=== PATIENT | female | born 1940 | race Caucasian/White ===

== ENCOUNTER → 2017-12-14 09:39 | Outpatient (CLI) | payer MEDICARE, SELFPAY ==
[2017-12-14 12:20] LABS: Absolute Lymphocyte Count 3.33 X10^3/ul (0.83-4.51); Absolute Neutrophil Count 3.6 X10^3/uL (2.0-7.7); Basophil# 0.03 X10^3/uL; Basophil% 0.4 % (0-1); Eosinophil# 0.19 X10^3/uL; Eosinophils% 2.3 % (0-5); Hematocrit 43.9 % (37-47); Lymphocyte # 3.33 X10^3/ul (4.0); Lymphocyte % 40.7 % (19-41); Mean Corp Hgb Conc 31.9 g/gl (32-36); Mean Corpuscular Hgb 28.5 pg (27.0-32.0); Mean Corpuscular Volume 89.2 fL (81-99); Mean Platelet Vol. 9.2 fl (6.2-12.0); Monocyte# 1.01 X10^3/uL; Monocyte% 12.3 % (0-10); Neutrophil % 43.9 % (47-70); Platelet Count 250 K/mm3 (150-450); RBC Distribution Width CV 14.5 % (11.6-14.6); RBC Distribution Width SD 46.6 fl (35.1-43.9); Red Blood Count 4.92 M/mm3 (4.2-5.4); White Blood Count 8.2 K/mm3 (4.4-11.0)
[2017-12-14 12:24] LABS: POSITIVE COUNT NO; POSITIVE DIFFERENTIAL NO; POSITIVE MORPHOLOGY NO
[2017-12-14 12:33] LABS: AST(SGOT) 28 U/L (15-37); Alanine Aminotransfer ALT/SGPT 32 U/L (13-56); Albumin, Serum 3.4 g/dL (3.2-5.0); Alkaline Phosphatase 58 U/L (45-117); Globulin 3.7 g/dL (2.2-4.2); Protein, Total 7.1 g/dL (6.4-8.2)
== END ==
PROVIDERS: Family Provider Internal Medicine; PCP Internal Medicine; Visit Provider Internal Medicine Rheumatology
DX: M05.79 Rheumatoid arthritis with rheumatoid factor of multiple sites without organ or systems involvement (principal); Z79.899 Other long term (current) drug therapy
CPT/HCPCS: 36415; 80076; 85025

== ENCOUNTER → 2018-01-19 08:27 | Outpatient (CLI) | payer MEDICARE, SELFPAY ==
[2018-01-19 08:37] LABS: Mucous, Urine 0 SEEN /hpf (<or=2+); Red Blood Cells-Urine 0 SEEN /hpf (0-5)
[2018-01-19 10:34] LABS: Absolute Lymphocyte Count 2.93 X10^3/ul (0.83-4.51); Absolute Neutrophil Count 3.7 X10^3/uL (2.0-7.7); Basophil# 0.07 X10^3/uL; Basophil% 0.8 % (0-1); Eosinophil# 1.23 X10^3/uL; Eosinophils% 13.7 % (0-5); Hematocrit 43.7 % (37-47); Hemoglobin 13.9 g/dl (12.0-15.0); Lymphocyte # 2.93 X10^3/ul (4.0); Lymphocyte % 32.7 % (19-41); Mean Corp Hgb Conc 31.8 g/gl (32-36); Mean Corpuscular Volume 88.1 fL (81-99); Mean Platelet Vol. 9.3 fl (6.2-12.0); Monocyte# 1.01 X10^3/uL; Monocyte% 11.3 % (0-10); Neutrophil # 3.68 X10^3/uL (2.7-7.7); Neutrophil % 41.2 % (47-70); Platelet Count 285 K/mm3 (150-450); RBC Distribution Width CV 14.9 % (11.6-14.6); Red Blood Count 4.96 M/mm3 (4.2-5.4)
[2018-01-19 10:39] LABS: POSITIVE COUNT NO; POSITIVE DIFFERENTIAL NO; POSITIVE MORPHOLOGY NO
[2018-01-19 10:50] LABS: Color, Urine Yellow (Yellow); Glucose, Dipstick Normal (Normal); Ketone-Dipstick Negative (Negative); Leukocyte Esterase-Dipstick 500 /ul (Negative); Nitrite-Dipstick Negative (Negative); Occult Blood-Urine 10 /ul (Negative); Protein-Dipstick Negative (Negative); Specific Gravity, Urine 1.015 (1.002-1.030); Urine Bilirubin Dipstick Negative (Negative); Urine Clarity Clear (Clear); Urine Urobilinogen Normal (Normal)
[2018-01-19 11:06] LABS: Bacteria 1+ /hpf (None Seen); Squamous Epithelial Cells - UA 10-25 SEEN /hpf (5-10); White Blood Cells 50-100 SEEN /hpf (0-5)
[2018-01-19 11:19] LABS: ALB/GLOB Ratio 0.9 RATIO (0.9-2.4); AST(SGOT) 23 U/L (15-37); Alanine Aminotransfer ALT/SGPT 25 U/L (13-56); Albumin, Serum 3.2 g/dL (3.2-5.0); Alkaline Phosphatase 60 U/L (45-117); Anion Gap 8 (5-15); BUN 11 mg/dL (7-18); BUN/Creat Ratio 11.7 RATIO (10-20); Calcium,Total 8.7 mg/dL (8.5-10.1); Chloride 110 mmol/L (98-107); Cholesterol 165 mg/dL (200); Creatinine, Serum 0.94 mg/dL (0.55-1.02); EST Glomerular Filtration Rate 61 mL/min (>60); Est Glom Filt Rate - Afr Amer 74 mL/min (>60); Globulin 3.7 g/dL (2.2-4.2); Glucose 86 mg/dL (74-106); High Density Lipoprotein 55 mg/dL; Potassium 4.1 mmol/L (3.5-5.1); Protein, Total 6.9 g/dL (6.4-8.2); Sodium Level 146 mmol/L (136-145); Thyroid Stim Hormone (TSH) 1.42 uIU/mL (0.358-3.74); Triglycerides 152 mg/dL; Very Low Density Lipoprotein 30 mg/dL (5-40)
[2018-01-19 11:41] LABS: Microalbumin,Random Urine 21.4 mg/L (NO RANGE EST.); Microalbumin:Creatinine Ratio 12.2 mg/g CRE (<30 mg/g CRE)
== END ==
PROVIDERS: Family Provider Internal Medicine; PCP Internal Medicine; Visit Provider Internal Medicine
DX: E03.9 Hypothyroidism, unspecified (principal); E78.5 Hyperlipidemia, unspecified; I10 Essential (primary) hypertension
CPT/HCPCS: 36415; 80053; 80061; 81001; 82043; 82570; 84443; 85025

== ENCOUNTER 2018-02-25 13:02 | Outpatient (RCR) | payer MEDICARE, SELFPAY | END 2018-03-11 23:59 | LOC: NS 13:02 | PROVIDERS: Family Provider Internal Medicine; PCP Internal Medicine; Visit Provider Podiatrist | DX: E11.9 Type 2 diabetes mellitus without complications (principal); S92.352D Displaced fracture of fifth metatarsal bone, left foot, subsequent encounter for fracture with routine healing; L97.519 Non-pressure chronic ulcer of other part of right foot with unspecified severity; G62.9 Polyneuropathy, unspecified; M06.9 Rheumatoid arthritis, unspecified; Z71.3 Dietary counseling and surveillance | CPT/HCPCS: 97802 ==

== ENCOUNTER 2018-03-09 11:00 | Outpatient (RCR) | payer MEDICARE, SELFPAY ==
[2018-02-23 09:29] VITALS: BP 163/87; PULSE 69; RESP 16; TEMP 36.4; BMI 24.1
--- NOTE | 2018-02-23 11:03 | HP.PCM_ITS ---
(1) Diabetes mellitus Status: Chronic Current Visit: Yes Qualifiers: Diabetes mellitus type: type 2 Code(s): E11.9 - Type 2 diabetes mellitus without complications (2) Ulcer of toe of right foot Status: Chronic Current Visit: Yes Qualifiers: Non-pressure ulcer stage: with fat layer exposed Qualified Code(s): L97.512 - Non-pressure chronic ulcer of other part of right foot with fat layer exposed Code(s): L97.519 - Non-pressure chronic ulcer of other part of right foot with unspecified severity (3) Peripheral neuropathy Status: Chronic Current Visit: Yes Code(s): G62.9 - Polyneuropathy, unspecified (4) Hypothyroidism Status: Chronic Current Visit: No Code(s): E03.9 - Hypothyroidism, unspecified (5) Rheumatoid arthritis Status: Chronic Current Visit: Yes Code(s): M06.9 - Rheumatoid arthritis, unspecified (6) Essential hypertension Status: Chronic Current Visit: No Code(s): I10 - Essential (primary) hypertension (7) Chronic osteoarthritis Status: Chronic Current Visit: Yes Code(s): M19.90 - Unspecified osteoarthritis, unspecified site History of Present Illness Date of Service: 02/23/18 Chief Complaint: Ulcerations of the right second and third toes. History of Wound: This is a 77-year-old female with diabetes mellitus. She is a referral from her podiatric specialist due to superficial ulcerations on the right second and third toes. These have been present for approximately 1 month. It is thought that these occurred due to reticulocyte deformity of the toes, and the pressure phenomenon related to the adjacent digits. The patient has been using Neosporin topically. Each ulceration started as a blister, which have now ruptured and resulted in superficial ulcerations. The patient is currently wearing a CAM walker the left foot, due to a left foot fracture which appears to involve the arch. Past Medical History Past Medical History: Chronic Problems Diabetes mellitus (Chronic) Ulcer of toe of right foot (Chronic) Peripheral neuropathy (Chronic) Hypothyroidism (Chronic) Rheumatoid arthritis (Chronic) Essential hypertension (Chronic) Chronic osteoarthritis (Chronic) Past Medical History: The patient has a history of osteoarthritis, rheumatoid arthritis, diabetes mellitus, peripheral neuropathy, hypertension, and hypothyroidism. The patient's history is negative for myocardial infarction, congestive heart failure, cerebrovascular accident, cancer, pulmonary disease, renal disease, and hyperlipidemia. Surgical History: adenoidectomy, appendectomy, cholecystectomy, hysterectomy, - - Cataract surgery, right shoulder surgery, right carpal tunnel release, right hand surgery ?2, right knee surgery, right bunionectomy, left breast surgery for benign disease, surgery for a deviated Omma and lumbar disc surgery at the 4 ?5 level. Allergies/Adverse Reactions: Allergies amoxicillin [From Augmentin] Adverse Reaction (Verified 05/12/17 17:09) dizzy,vomitting DIZZY, VOMITTING clavulanic acid [From Augmentin] Adverse Reaction (Verified 05/12/17 17:09) dizzy, vomitting DIZZY, VOMITTING codeine Adverse Reaction (Verified 05/12/17 17:09) dizzy,nausea DIZZY, NAUSEA hydrocodone [From Vicodin] Adverse Reaction (Verified 05/12/17 17:09) dizzy,nausea DIZZY, NAUSEA oxycodone [From Percocet] Adverse Reaction (Verified 05/12/17 17:09) dizzy,nausea DIZZY, NAUSEA Sulfa (Sulfonamide Antibiotics) Adverse Reaction (Verified 05/12/17 17:09) dizzy,nausea DIZZY, NAUSEA tramadol Adverse Reaction (Verified 05/12/17 17:09) dizzy,nausea DIZZY, NAUSEA Home Medications: Ambulatory Orders Medication Instructions Recorded Levothyroxine [Synthroid] 75 mcg PO DAILY 03/11/17 Lisinopril [Zestril] 10 mg PO DAILY 03/11/17 Lorazepam [Ativan] 0.5 mg PO DAILY PRN PRN 03/11/17 Multivit-Min/FA/Lycopen/Lutein 1 each PO DAILY 03/11/17 [Centrum Silver Tablet] Omeprazole [Prilosec] 20 mg PO DAILY 03/11/17 Potassium (Otc) [Potassium OTC] 99 mg PO DAILY 03/11/17 Vitamin E 400 unit PO DAILY 03/11/17 Vits A,C,E/Lutein/Minerals 1 each PO DAILY 03/11/17 [Ocuvite with Lutein Tablet] predniSONE tablet 5 mg PO DAILY 03/11/17 traZODone [Desyrel] 50 mg PO QHS PRN 03/11/17 Acetaminophen [Tylenol Tablet] 650 mg PO Q6H PRN PRN tablet 05/15/17 Leflunomide 20 mg PO DAILY 02/23/18 Metformin HCl [Metformin HCl ER] 500 mg PO DAILY 02/23/18 - Family History Maternal No pertinent history, - - The patient's father at the age of 94 with a history of bone cancer. Patient's mother at age of 97 from old age. Paternal No pertinent history Social History: The patient is a recent . She denies use of alcohol and tobacco products. 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 Lives: Alone Smoking Status: Never smoker Tobacco Use: Non-smoker Alcohol: None Drugs: None Review of Systems Constitutional: Denies: Chills, Fever, Weight Change Eyes: Denies: Pain, Vision Change HEENT: Denies: Difficulty Hearing, Difficulty Swallowing, Sinus Congestion Cardiovascular: Denies: Chest Pain, Palpitations Respiratory: Denies: Cough, Shortness of Breath Gastrointestinal: Denies: Diarrhea, Nausea, Vomiting Genitourinary: Denies: Dysuria, Hematuria Endocrine: Denies: Heat/ Cold Intolerance, Polydipsia, Polyuria Hematologic/ Lymphatic: Denies: Easy Bruising, Easy Bleeding - Physical Exam Vital Signs Temp Pulse Resp BP 97.6 F L 69 16 163/87 H 02/23/18 09:29 02/23/18 09:29 02/23/18 09:29 02/23/18 09:29 General: Alert, Oriented x3, Cooperative, No apparent distress, Well developed, Well nourished, - - The patient is of normal body habitus. HEENT: Atraumatic, PERRLA, EOMI, Normocephalic Oral: Moist Mucosa Neck: Supple, No JVD, Negative Carotid Bruits, Negative Hepatojugular Reflux, No Nodes, No Nuchal Rigidity, Trachea Midline Lungs: Clear to auscultation, Normal air movement, No rhonchi, No wheeze, No rales Cardiovascular: Regular rate, Regular Rhythm, Normal S1, Normal S2, No murmurs Abdomen: Soft, Non Tender, Non-Distended Extremities: No clubbing, No cyanosis, No edema, No Calf Tenderness, - - A CAM walker as noted on the left foot. Arthritic changes are noted involving the toes of the right foot. Superficial ulcerations are noted on the medial aspect of the right second toe and on the right third toe. The base of these ulcerations are pink and healthy in appearance. There is no sign of infection or cellulitis. The ulcerations are small, and dimensions are documented elsewhere. Skin: No rashes Wound Measurements and Assessment WC - Nurse 1 - General Ulcer Measurement Start: 02/23/18 09:06 Freq: Status: Active Protocol: Activity Type Activity Date Activity User E-Sign Co-Sign Detail Recorded Client Recorded Date Recorded By Document 02/23/18 09:29 DV [id number] 02/23/18 09:49 DV 02/23/18 09:29 Wound Center Nurse 1 [Ulcer Assessment] #2 3rd Toe -Combined with other wound No -Current Size (cm) - Length 0.3 -Current Size (cm) - Width 0.2 -Current Size (cm) - Depth 0.1 -Total Square Cm 0.06 -Photo Taken Yes -Epithelialization None Present -Tunneling No -Undermining/Tunneling No -Circular Undermining No -Classification - Thickness Full Thickness without Exposed Support Structure -Exudate Amt None Present (0 %) -Wound Margin Flat & Intact -Granulation Amt None Present (0 %) -Granulation Quality N/A -Slough/Fibrin Yes -Necrosis Amt Small (1-33%) -Necrotic Tissue Type Adherent Slough -Structure Exposed None/Limited to Skin Breakdown -Texture (Adelina-wound Skin Appearance) No Abnormality Assessed -Moisture (Adelina-wound Skin Appearance Assessed ) Weeping -Color (Adelina-wound Skin Appearance) Assessed Erythema -Temperature (Adelina-wound Skin No Abnormality Appearance) (Pt Warm) -Tenderness on Palpation (Adelina-wound No Skin Appearance) -Ulcer Cleansing Wound Cleanser -Foul Odor after Cleansing No -Anesthetic Used 4% Lidocaine Solution #1 2nd Toe -Combined with other wound No -Current Size (cm) - Length 0.4 -Current Size (cm) - Width 0.2 -Current Size (cm) - Depth 0.1 -Total Square Cm 0.08 -Date of Last Picture (Recall this 02/23/18 field) -Photo Taken Yes -Epithelialization None Present -Tunneling No -Undermining/Tunneling No -Circular Undermining No -Classification - Thickness Full Thickness without Exposed Support Structure -Exudate Amt None Present (0 %) -Wound Margin Flat & Intact -Granulation Amt None Present (0 %) -Granulation Quality N/A -Slough/Fibrin Yes -Necrosis Amt Small (1-33%) -Necrotic Tissue Type Adherent Slough -Structure Exposed None/Limited to Skin Breakdown -Texture (Adelina-wound Skin Appearance) No Abnormality Assessed -Moisture (Adelina-wound Skin Appearance Assessed ) Weeping -Color (Adelina-wound Skin Appearance) Assessed Erythema -Temperature (Adelina-wound Skin No Abnormality Appearance) (Pt Warm) -Tenderness on Palpation (Adelina-wound No Skin Appearance) -Ulcer Cleansing Rinsed/ Irrigated with Saline -Foul Odor after Cleansing No -Anesthetic Used 4% Lidocaine Solution [Edema Assessment] -Lower Limb Edema Present No -Right Calf (cm) 32.5 -Right Ankle (cm) 19.0 Musculoskeletal: Arthritic Changes Neurological: Cranial nerves II-XII grossly intact, Neuro grossly intact Psych/Mental Status: Normal Affect, Appropriate, Alert and oriented to time, place, person, mood and affect Debridement Note Laterality: Right - Second toe Type of Debridement: Excisional debridement Anesthesia Used: 4% Lidocaine Solution Depth: Down to and including healthy tissue, in the subcutaneous layer Percentage of wound debrided: 100 Instrument Used: 3mm curette Severity: Fat Layer Exposed Bleeding Controlled with: Compression and gauze Patient tolerated procedure well - Additional Wound Laterality: Right - Third toe Type of Debridement: Excisional debridement Anesthesia Used: 4% Lidocaine Solution Depth: Down to and including healthy tissue, in the subcutaneous layer Percentage of wound debrided: 100 Instrument Used: 3mm curette Severity: Fat Layer Exposed Amount of bleeding with debridement: Mild Bleeding Controlled with: Compression and gauze Patient tolerated procedure: Patient tolerated procedure well Assessment/Plan Active Problems Diabetes mellitus (Chronic) Ulcer of toe of right foot (Chronic) Peripheral neuropathy (Chronic) Rheumatoid arthritis (Chronic) Chronic osteoarthritis (Chronic) Assessment: Is a 77-year-old diabetic female who presents with very superficial ulcerations on the second and third toes of the right foot. It appears as though the ulcerations started as blisters, which have now transitioned to superficial ulcerations. The blisters were likely due to pressure phenomenon, either due to poorly fitted shoes or rubbing due to deformity of the toes secondary to arthritis. Patient has multiple other medical problems, which have been documented above. She has had recent laboratory studies, with results as follows: White blood count 9.0 hemoglobin 13.9, hematocrit 43.7, platelets 285,000, sodium 146, potassium 4.1, chloride 110, BUN 11, creatinine 0.94, calcium 8.7, ALT 25, AST 23, total protein 6.9, albumin 3.2. Plan: Offloading measures have been recommended. We are to implement the use of optive foam, which will allow for offloading and separation of the adjacent digits. Hydrogel is to be implemented for topical use, and will be applied on a daily basis. A noninvasive lower extremity arterial study will be obtained to assess arterial status. Hemoglobin A1c will be also obtained, which will indicate the patient's level of diabetic control recently. Optimization of nutritional intake, and optimization of glycemic management has also been recommended. The patient is return in 1 week for reassessment. Influenza vaccine was not administered today. The patient is not a smoker. Patient weighs 154 pounds. She stands 5 feet 7 inches tall. Her BMI is 24.1, which is normal.
[2018-02-23 13:37] LABS: Hemoglobin A1c 6.2 % (4.2-6.3)
[2018-03-02 08:38] VITALS: BP 126/68; PULSE 75; RESP 16; TEMP 36.4; BMI 24.1
--- NOTE | 2018-03-02 09:14 | HP.PCM_ITS ---
(1) Diabetes mellitus Status: Chronic Current Visit: Yes Qualifiers: Diabetes mellitus type: type 2 Code(s): E11.9 - Type 2 diabetes mellitus without complications (2) Ulcer of toe of right foot Status: Chronic Current Visit: Yes Qualifiers: Non-pressure ulcer stage: with fat layer exposed Qualified Code(s): L97.512 - Non-pressure chronic ulcer of other part of right foot with fat layer exposed Code(s): L97.519 - Non-pressure chronic ulcer of other part of right foot with unspecified severity (3) Peripheral neuropathy Status: Chronic Current Visit: Yes Code(s): G62.9 - Polyneuropathy, unspecified (4) Hypothyroidism Status: Chronic Current Visit: No Code(s): E03.9 - Hypothyroidism, unspecified (5) Rheumatoid arthritis Status: Chronic Current Visit: Yes Code(s): M06.9 - Rheumatoid arthritis, unspecified (6) Essential hypertension Status: Chronic Current Visit: No Code(s): I10 - Essential (primary) hypertension (7) Chronic osteoarthritis Status: Chronic Current Visit: Yes Code(s): M19.90 - Unspecified osteoarthritis, unspecified site History of Present Illness Date of Service: 03/02/18 Chief Complaint: Ulcerations of the right second and third toes. History of Wound: This is a 77-year-old female with diabetes mellitus. She is a referral from her podiatric specialist due to superficial ulcerations on the right second and third toes. These have been present for approximately 1 month. It is thought that these occurred due to arthritic deformity of the toes , and the pressure phenomenon related to the adjacent digits. The patient had been using Neosporin topically. Each ulceration started as a blister, which have now ruptured and resulted in superficial ulcerations. The patient is currently wearing a CAM walker the left foot, due to a left foot fracture which appears to involve the arch. The patient's last visit, we have implemented a regimen of offloading measures, and the use of collagen hydrogel topically on a daily basis. Past Medical History Past Medical History: Chronic Problems Diabetes mellitus (Chronic) Ulcer of toe of right foot (Chronic) Peripheral neuropathy (Chronic) Hypothyroidism (Chronic) Rheumatoid arthritis (Chronic) Essential hypertension (Chronic) Chronic osteoarthritis (Chronic) Surgical History: adenoidectomy, appendectomy, cholecystectomy, hysterectomy, - - Cataract surgery, right shoulder surgery, right carpal tunnel release, right hand surgery ?2, right knee surgery, right bunionectomy, left breast surgery for benign disease, surgery for a deviated Omma and lumbar disc surgery at the 4 ?5 level. Allergies/Adverse Reactions: Allergies amoxicillin [From Augmentin] Adverse Reaction (Verified 05/12/17 17:09) dizzy,vomitting DIZZY, VOMITTING clavulanic acid [From Augmentin] Adverse Reaction (Verified 05/12/17 17:09) dizzy, vomitting DIZZY, VOMITTING codeine Adverse Reaction (Verified 05/12/17 17:09) dizzy,nausea DIZZY, NAUSEA hydrocodone [From Vicodin] Adverse Reaction (Verified 05/12/17 17:09) dizzy,nausea DIZZY, NAUSEA oxycodone [From Percocet] Adverse Reaction (Verified 05/12/17 17:09) dizzy,nausea DIZZY, NAUSEA Sulfa (Sulfonamide Antibiotics) Adverse Reaction (Verified 05/12/17 17:09) dizzy,nausea DIZZY, NAUSEA tramadol Adverse Reaction (Verified 05/12/17 17:09) dizzy,nausea DIZZY, NAUSEA Home Medications: Ambulatory Orders Medication Instructions Recorded Levothyroxine [Synthroid] 75 mcg PO DAILY 03/11/17 Lisinopril [Zestril] 10 mg PO DAILY 03/11/17 Lorazepam [Ativan] 0.5 mg PO DAILY PRN PRN 03/11/17 Multivit-Min/FA/Lycopen/Lutein 1 each PO DAILY 03/11/17 [Centrum Silver Tablet] Omeprazole [Prilosec] 20 mg PO DAILY 03/11/17 Potassium (Otc) [Potassium OTC] 99 mg PO DAILY 03/11/17 Vitamin E 400 unit PO DAILY 03/11/17 Vits A,C,E/Lutein/Minerals 1 each PO DAILY 03/11/17 [Ocuvite with Lutein Tablet] predniSONE tablet 5 mg PO DAILY 03/11/17 traZODone [Desyrel] 50 mg PO QHS PRN 03/11/17 Acetaminophen [Tylenol Tablet] 650 mg PO Q6H PRN PRN tablet 05/15/17 Leflunomide 20 mg PO DAILY 02/23/18 Metformin HCl [Metformin HCl ER] 500 mg PO DAILY 02/23/18 - Family History Maternal No pertinent history, - - The patient's father at the age of 94 with a history of bone cancer. Patient's mother at age of 97 from old age. Paternal No pertinent history Lives: Alone Smoking Status: Never smoker Tobacco Use: Non-smoker Alcohol: None Drugs: None Review of Systems Constitutional: Denies: Chills, Fever, Weight Change Eyes: Denies: Pain, Vision Change HEENT: Denies: Difficulty Hearing, Difficulty Swallowing, Sinus Congestion Cardiovascular: Denies: Chest Pain, Palpitations Respiratory: Denies: Cough, Shortness of Breath Gastrointestinal: Denies: Diarrhea, Nausea, Vomiting Genitourinary: Denies: Dysuria, Hematuria Endocrine: Denies: Heat/ Cold Intolerance, Polydipsia, Polyuria Hematologic/ Lymphatic: Denies: Easy Bruising, Easy Bleeding - Physical Exam Vital Signs Temp Pulse Resp BP 97.6 F L 75 16 126/68 H 03/02/18 08:38 03/02/18 08:38 03/02/18 08:38 03/02/18 08:38 General: Alert, Oriented x3, Cooperative, No apparent distress, Well developed, Well nourished HEENT: Atraumatic, PERRLA, EOMI, Normocephalic Oral: Moist Mucosa Neck: No JVD Lungs: Normal air movement Abdomen: Non-Distended Extremities: No clubbing, No cyanosis, No edema, No Calf Tenderness, - - The ulcerations on the medial aspect of the right second and third toes are smaller in size. Each is quite superficial. There is no sign of infection or cellulitis. Dimensions are documented elsewhere. There is only minimal amount of bioburden. Skin: No rashes Wound Measurements and Assessment WC - Nurse 1 - General Ulcer Measurement Start: 02/23/18 09:06 Freq: Status: Active Protocol: Activity Type Activity Date Activity User E-Sign Co-Sign Detail Recorded Client Recorded Date Recorded By Document 03/02/18 08:38 DL [id number] 03/02/18 08:48 DL 03/02/18 08:38 Wound Center Nurse 1 [Ulcer Assessment] #2 3rd Toe -Current Size (cm) - Length 0.1 -Current Size (cm) - Width 0.1 -Current Size (cm) - Depth 0.1 -Total Square Cm 0.01 -Photo Taken No -Exudate Amt None Present (0 %) -Wound Margin Flat & Intact -Granulation Amt Small (1-33%) -Granulation Quality Pale -Necrosis Amt Small (1-33%) -Necrotic Tissue Type Adherent Slough -Structure Exposed N/A -Texture (Adelina-wound Skin Appearance) No Abnormality -Moisture (Adelina-wound Skin Appearance No Abnormality ) -Color (Adelina-wound Skin Appearance) No Abnormality -Temperature (Adelina-wound Skin No Abnormality Appearance) (Pt Warm) -Ulcer Cleansing Rinsed/ Irrigated with Saline -Foul Odor after Cleansing No -Anesthetic Used 4% Lidocaine Solution #1 2nd Toe -Current Size (cm) - Length 0.2 -Current Size (cm) - Width 0.2 -Current Size (cm) - Depth 0.1 -Total Square Cm 0.04 -Photo Taken No -Exudate Amt None Present (0 %) -Wound Margin Flat & Intact -Granulation Amt None Present (0 %) -Necrosis Amt Small (1-33%) -Necrotic Tissue Type Adherent Slough -Structure Exposed N/A -Texture (Adelina-wound Skin Appearance) No Abnormality -Moisture (Adelina-wound Skin Appearance No Abnormality ) -Color (Adelina-wound Skin Appearance) No Abnormality -Temperature (Adelina-wound Skin No Abnormality Appearance) (Pt Warm) -Ulcer Cleansing Rinsed/ Irrigated with Saline -Foul Odor after Cleansing No -Anesthetic Used 4% Lidocaine Solution WC - Nurse 2 - General Ulcer CM Notes Start: 02/23/18 09:06 Freq: Status: Active Protocol: Activity Type Activity Date Activity User E-Sign Co-Sign Detail Recorded Client Recorded Date Recorded By Document 03/02/18 08:56 [email or web address] [id number] 03/02/18 09:04 [email or web address] 03/02/18 08:56 Wound Center Nurse 2 [Procedure/Treatment] #2 3rd Toe -Time 08:56 -Correct Patient Yes -Correct Side, Site, Position Yes -Correct Procedure Yes -Procedure Performed Yes -Type of Procedure Debridement -Clinical Debridement Subcutaneous -Post Debridement Size (cm) - Length 0.2 -Post Debridement Size (cm) - Width 0.1 -Post Debridement Size (cm) - Depth 0.1 -Total Square Cm 0.02 -Wound/Ulcer Outcome Not Healed -Ulcer Cleansing Rinsed/ Irrigated with Saline -Foul Odor after Cleansing No -Bioengineered Tissue No -Topical Lidocaine (%) 4 -Lidocaine (ml) 5 -Bleeding Controlled with NA -Treatment Response Procedure Tolerated Well #1 2nd Toe -Time 08:56 -Correct Patient Yes -Correct Side, Site, Position Yes -Correct Procedure Yes -Procedure Performed Yes -Type of Procedure Debridement -Clinical Debridement Subcutaneous -Post Debridement Size (cm) - Length 0.3 -Post Debridement Size (cm) - Width 0.3 -Post Debridement Size (cm) - Depth 0.1 -Total Square Cm 0.09 -Wound/Ulcer Outcome Not Healed -Ulcer Cleansing Rinsed/ Irrigated with Saline -Foul Odor after Cleansing No -Bioengineered Tissue No -Topical Lidocaine (%) 4 -Lidocaine (ml) 5 -Bleeding Controlled with NA -Treatment Response Procedure Tolerated Well [See Physician Procedure note for Specifics] Pain Scale: 0-10 Numeric [Pain] -Is Patient Pain Free? Yes Neurological: Cranial nerves II-XII grossly intact, Neuro grossly intact Psych/Mental Status: Normal Affect, Appropriate, Alert and oriented to time, place, person, mood and affect Debridement Note Post-Debridement Measurements/Treatment WC - Nurse 2 - General Ulcer CM Notes Start: 02/23/18 09:06 Freq: Status: Active Protocol: Activity Type Activity Date Activity User E-Sign Co-Sign Detail Recorded Client Recorded Date Recorded By Document 02/23/18 10:43 [id number] 02/23/18 10:58 JS Document 03/02/18 08:56 [id number] 03/02/18 09:04 02/23/18 03/02/18 10:43 08:56 Wound Center Nurse 2 #2 3rd Toe -Time 10:43 08:56 -Correct Patient Yes Yes -Correct Side, Site, Position Yes Yes -Correct Procedure Yes Yes -Procedure Performed Yes -Type of Procedure Debridement -Clinical Debridement Subcutaneous -Post Debridement Size (cm) - Length 0.2 -Post Debridement Size (cm) - Width 0.1 -Post Debridement Size (cm) - Depth 0.1 -Total Square Cm 0.02 -Wound/Ulcer Outcome Not Healed Not Healed -Ulcer Cleansing Not Cleansed Rinsed/ Irrigated with Saline -Foul Odor after Cleansing No No -Bioengineered Tissue No No -Topical Lidocaine (%) 4 4 -Lidocaine (ml) 5 5 -Bleeding Controlled with NA NA -Treatment Response Procedure Tolerated Well #1 2nd Toe -Time 10:43 08:56 -Correct Patient Yes Yes -Correct Side, Site, Position Yes Yes -Correct Procedure Yes Yes -Procedure Performed No Yes -Type of Procedure Debridement -Clinical Debridement Subcutaneous -Post Debridement Size (cm) - Length 0.3 -Post Debridement Size (cm) - Width 0.3 -Post Debridement Size (cm) - Depth 0.1 -Total Square Cm 0.09 -Wound/Ulcer Outcome Not Healed Not Healed -Ulcer Cleansing Rinsed/ Rinsed/ Irrigated with Irrigated with Saline Saline -Foul Odor after Cleansing No No -Bioengineered Tissue No No -Topical Lidocaine (%) 4 4 -Lidocaine (ml) 5 5 -Bleeding Controlled with NA NA -Treatment Response Procedure Not Procedure Tolerated Well Tolerated Well Pain Scale: 0-10 Numeric Is Patient Pain Free? Yes Laterality: Right - Second toe Type of Debridement: Excisional debridement Anesthesia Used: 4% Lidocaine Solution Depth: Down to and including healthy tissue, in the subcutaneous layer Percentage of wound debrided: 100 Instrument Used: 3mm curette Severity: Fat Layer Exposed Amount of bleeding with debridement: Mild Bleeding Controlled with: Compression and gauze Patient tolerated procedure well - Additional Wound Laterality: Right - Third toe Type of Debridement: Excisional debridement Anesthesia Used: 4% Lidocaine Solution Depth: Down to and including healthy tissue, in the subcutaneous layer Percentage of wound debrided: 100 Instrument Used: 3mm curette Severity: Fat Layer Exposed Amount of bleeding with debridement: Mild Bleeding Controlled with: Compression and gauze Patient tolerated procedure: Patient tolerated procedure well Assessment/Plan Active Problems Diabetes mellitus (Chronic) Ulcer of toe of right foot (Chronic) Peripheral neuropathy (Chronic) Rheumatoid arthritis (Chronic) Chronic osteoarthritis (Chronic) Assessment: This is a 77-year-old diabetic female who presents with very superficial ulcerations on the second and third toes of the right foot. It appears as though the ulcerations started as blisters, which have now transitioned to superficial ulcerations. The blisters were likely due to pressure phenomenon, either due to poorly fitted shoes or rubbing due to deformity of the toes secondary to arthritis. Patient has multiple other medical problems, which have been documented above. She has had recent laboratory studies, with results as follows: White blood count 9.0 hemoglobin 13.9, hematocrit 43.7, platelets 285,000, sodium 146, potassium 4.1, chloride 110, BUN 11, creatinine 0.94, calcium 8.7, ALT 25, AST 23, total protein 6.9, albumin 3.2. Hemoglobin A1c was 6.2. A noninvasive lower extremity arterial study revealed triphasic waveforms at ankle level bilaterally, and supra-normal ankle-brachial index on the right. Plan: Offloading measures have been implemented. We are to continue the use of Opti-Foam, which will allow for offloading and separation of the adjacent digits. Hydrogel is to be implemented for topical use, and will be applied on a daily basis. Optimization of nutritional intake, and optimization of glycemic management has also been recommended. The patient is to return in 1 week for reassessment. Influenza vaccine was not administered today. The patient is not a smoker. Patient weighs 154 pounds. She stands 5 feet 7 inches tall. Her BMI is 24.1, which is normal.
--- NOTE | 2018-03-05 07:14 | LEAS ---
Arterial Study - Arterial Study Arterial Study: This is a 77-year-old female with a history of diabetes mellitus and hypertension. The patient presents with physical findings consistent with peripheral arterial occlusive disease. Suspecting the presence of peripheral arterial occlusive disease, the patient was brought to the noninvasive vascular laboratory at this time for the purpose of bilateral noninvasive lower extremity arterial assessment. Doppler signal assessment was used to evaluate the pulses at ankle level bilaterally. The posterior tibial and dorsalis pedis pulses were triphasic bilaterally. Segmental limb pressures were obtained bilaterally. The right ankle pressure, as determined by posterior tibial pulse, was measured at 203 mmHg. The right ankle pressure, as determined by dorsalis pedis pulse, was measured at 171 mmHg. The right digital pressure was measured at 88 mmHg. The left ankle pressure, as determined by posterior tibial and dorsalis pedis pulses, could not be determined due to the noncompressibility of the vasculature. The left digital pressure was measured at 107 mmHg. Pulse-volume recordings were obtained bilaterally and segmentally. Waveform amplitudes appeared to be satisfactory at all levels bilaterally, including low thigh, calf, ankle, and digital levels. Resting ankle-brachial indices were calculated bilaterally. The resting right ankle-brachial index was calculated to be 1.57. The resting left ankle-brachial index could not be determined due to the noncompressibility of the vasculature. Digital-brachial indices were calculated bilaterally. The right digital-brachial index was calculated to be 0.68. The left digital-brachial index was calculated to be 0.83. Impression: Based upon the findings of this resting noninvasive lower extremity arterial study, there is evidence of arterial calcification in the lower extremities bilaterally. On the right, the resting ankle-brachial index is supra-normal, suggestive of arterial calcification. The resting left ankle-brachial index could not be calculated due to the noncompressibility of the vasculature. However, triphasic waveforms were noted at ankle level bilaterally, suggesting that arterial flow at ankle level may be relatively normal bilaterally. The right digital-brachial index is mildly diminished, suggesting the presence of mild, distal, small-vessel arterial occlusive disease. The left digital-brachial index is normal, suggesting relatively normal flow at digital level on the left. Clinical correlation is advised.
--- NOTE | 2018-03-05 07:18 | LEAS_ITS ---
Arterial Study - Arterial Study Arterial Study: This is a 77-year-old female with a history of diabetes mellitus and hypertension. The patient presents with physical findings consistent with peripheral arterial occlusive disease. Suspecting the presence of peripheral arterial occlusive disease, the patient was brought to the noninvasive vascular laboratory at this time for the purpose of bilateral noninvasive lower extremity arterial assessment. Doppler signal assessment was used to evaluate the pulses at ankle level bilaterally. The posterior tibial and dorsalis pedis pulses were triphasic bilaterally. Segmental limb pressures were obtained bilaterally. The right ankle pressure, as determined by posterior tibial pulse, was measured at 203 mmHg. The right ankle pressure, as determined by dorsalis pedis pulse, was measured at 171 mmHg. The right digital pressure was measured at 88 mmHg. The left ankle pressure, as determined by posterior tibial and dorsalis pedis pulses, could not be determined due to the noncompressibility of the vasculature. The left digital pressure was measured at 107 mmHg. Pulse-volume recordings were obtained bilaterally and segmentally. Waveform amplitudes appeared to be satisfactory at all levels bilaterally, including low thigh, calf, ankle, and digital levels. Resting ankle-brachial indices were calculated bilaterally. The resting right ankle-brachial index was calculated to be 1.57. The resting left ankle- brachial index could not be determined due to the noncompressibility of the vasculature. Digital-brachial indices were calculated bilaterally. The right digital- brachial index was calculated to be 0.68. The left digital-brachial index was calculated to be 0.83. Impression: Based upon the findings of this resting noninvasive lower extremity arterial study, there is evidence of arterial calcification in the lower extremities bilaterally. On the right, the resting ankle-brachial index is supra-normal, suggestive of arterial calcification. The resting left ankle- brachial index could not be calculated due to the noncompressibility of the vasculature. However, triphasic waveforms were noted at ankle level bilaterally , suggesting that arterial flow at ankle level may be relatively normal bilaterally. The right digital-brachial index is mildly diminished, suggesting the presence of mild, distal, small-vessel arterial occlusive disease. The left digital-brachial index is normal, suggesting relatively normal flow at digital level on the left. Clinical correlation is advised.
[2018-03-09 10:44] VITALS: BP 135/73; PULSE 77; RESP 18; TEMP 36.4; BMI 24.1
--- NOTE | 2018-03-09 11:38 | PCM.WC.HP ---
(1) Diabetes mellitus Status: Chronic Current Visit: Yes Qualifiers: Diabetes mellitus type: type 2 Code(s): E11.9 - Type 2 diabetes mellitus without complications (2) Ulcer of toe of right foot Status: Chronic Current Visit: Yes Qualifiers: Non-pressure ulcer stage: with fat layer exposed Qualified Code(s): L97.512 - Non-pressure chronic ulcer of other part of right foot with fat layer exposed Code(s): L97.519 - Non-pressure chronic ulcer of other part of right foot with unspecified severity (3) Peripheral neuropathy Status: Chronic Current Visit: Yes Code(s): G62.9 - Polyneuropathy, unspecified (4) Hypothyroidism Status: Chronic Current Visit: No Code(s): E03.9 - Hypothyroidism, unspecified (5) Rheumatoid arthritis Status: Chronic Current Visit: Yes Code(s): M06.9 - Rheumatoid arthritis, unspecified (6) Essential hypertension Status: Chronic Current Visit: No Code(s): I10 - Essential (primary) hypertension (7) Chronic osteoarthritis Status: Chronic Current Visit: Yes Code(s): M19.90 - Unspecified osteoarthritis, unspecified site (8) Steroid dependence Status: Chronic Current Visit: Yes History of Present Illness Date of Service: 03/09/18 Chief Complaint: Ulcerations of the right second and third toes. History of Wound: This is a 77-year-old female with diabetes mellitus. She is a referral from her podiatric specialist due to superficial ulcerations on the right second and third toes. These had been present for approximately 1 month. It is thought that these occurred due to arthritic deformity of the toes, and the pressure phenomenon related to the adjacent digits. The patient had been using Neosporin topically. Each ulceration started as a blister, which has now ruptured and resulted in superficial ulcerations. The patient is currently wearing a CAM walker the left foot, due to a left foot fracture which appears to involve the arch. We have implemented a regimen of offloading measures, and the use of collagen hydrogel topically on a daily basis. Past Medical History Past Medical History: Chronic Problems Diabetes mellitus (Chronic) Ulcer of toe of right foot (Chronic) Peripheral neuropathy (Chronic) Steroid dependence (Chronic) Hypothyroidism (Chronic) Rheumatoid arthritis (Chronic) Essential hypertension (Chronic) Chronic osteoarthritis (Chronic) Surgical History: adenoidectomy, appendectomy, cholecystectomy, hysterectomy, - - Cataract surgery, right shoulder surgery, right carpal tunnel release, right hand surgery ?2, right knee surgery, right bunionectomy, left breast surgery for benign disease, surgery for a deviated Omma and lumbar disc surgery at the 45 level. Allergies/Adverse Reactions: Allergies amoxicillin [From Augmentin] Adverse Reaction (Verified 05/12/17 17:09) dizzy,vomitting DIZZY, VOMITTING clavulanic acid [From Augmentin] Adverse Reaction (Verified 05/12/17 17:09) dizzy, vomitting DIZZY, VOMITTING codeine Adverse Reaction (Verified 05/12/17 17:09) dizzy,nausea DIZZY, NAUSEA hydrocodone [From Vicodin] Adverse Reaction (Verified 05/12/17 17:09) dizzy,nausea DIZZY, NAUSEA oxycodone [From Percocet] Adverse Reaction (Verified 05/12/17 17:09) dizzy,nausea DIZZY, NAUSEA Sulfa (Sulfonamide Antibiotics) Adverse Reaction (Verified 05/12/17 17:09) dizzy,nausea DIZZY, NAUSEA tramadol Adverse Reaction (Verified 05/12/17 17:09) dizzy,nausea DIZZY, NAUSEA Home Medications: Ambulatory Orders Medication Instructions Recorded Levothyroxine [Synthroid] 75 mcg PO DAILY 03/11/17 Lisinopril [Zestril] 10 mg PO DAILY 03/11/17 Lorazepam [Ativan] 0.5 mg PO DAILY PRN PRN 03/11/17 Multivit-Min/FA/Lycopen/Lutein 1 each PO DAILY 03/11/17 [Centrum Silver Tablet] Omeprazole [Prilosec] 20 mg PO DAILY 03/11/17 Potassium (Otc) [Potassium OTC] 99 mg PO DAILY 03/11/17 Vitamin E 400 unit PO DAILY 03/11/17 Vits A,C,E/Lutein/Minerals 1 each PO DAILY 03/11/17 [Ocuvite with Lutein Tablet] predniSONE tablet 5 mg PO DAILY 03/11/17 traZODone [Desyrel] 50 mg PO QHS PRN 03/11/17 Acetaminophen [Tylenol Tablet] 650 mg PO Q6H PRN PRN tablet 05/15/17 Leflunomide 20 mg PO DAILY 02/23/18 Metformin HCl [Metformin HCl ER] 500 mg PO DAILY 02/23/18 - Family History Maternal No pertinent history, - - The patient's father at the age of 94 with a history of bone cancer. Patient's mother at age of 97 from old age. Paternal No pertinent history Lives: Alone Smoking Status: Never smoker Tobacco Use: Non-smoker Alcohol: None Drugs: None Review of Systems Constitutional: Denies: Chills, Fever, Weight Change Eyes: Denies: Pain, Vision Change HEENT: Denies: Difficulty Hearing, Difficulty Swallowing, Sinus Congestion Cardiovascular: Denies: Chest Pain, Palpitations Respiratory: Denies: Cough, Shortness of Breath Gastrointestinal: Denies: Diarrhea, Nausea, Vomiting Genitourinary: Denies: Dysuria, Hematuria Endocrine: Denies: Heat/ Cold Intolerance, Polydipsia, Polyuria Hematologic/ Lymphatic: Denies: Easy Bruising, Easy Bleeding - Physical Exam Vital Signs Temp Pulse Resp BP 97.5 F L 77 18 135/73 H 03/09/18 10:44 03/09/18 10:44 03/09/18 10:44 03/09/18 10:44 General: Alert, Oriented x3, Cooperative, No apparent distress, Well developed, Well nourished HEENT: Atraumatic, PERRLA, EOMI, Normocephalic Oral: Moist Mucosa Neck: No JVD Lungs: Normal air movement Abdomen: Non-Distended Extremities: No clubbing, No cyanosis, No edema, No Calf Tenderness, - - Ulcerations on the medial aspect of the right second and third toes are markedly diminished in size, and now nearly totally healed. There is no sign of infection or cellulitis. Dimensions are documented elsewhere. Skin: No rashes Wound Measurements and Assessment WC - Nurse 1 - General Ulcer Measurement Start: 02/23/18 09:06 Freq: Status: Active Protocol: Activity Type Activity Date Activity User E-Sign Co-Sign Detail Recorded Client Recorded Date Recorded By Document 03/09/18 10:44 DL [id number] 03/09/18 10:51 DL 03/09/18 10:44 Wound Center Nurse 1 [Ulcer Assessment] #2 3rd Toe -Current Size (cm) - Length 0.1 -Current Size (cm) - Width 0.1 -Current Size (cm) - Depth 1 -Total Square Cm 0.01 -Photo Taken No -Exudate Amt None Present (0 %) -Wound Margin Flat & Intact -Granulation Amt Large (67-100%) -Granulation Quality [place] -Necrosis Amt None Present (0 %) -Structure Exposed N/A -Texture (Adelina-wound Skin Appearance) Scarring -Moisture (Adelina-wound Skin Appearance No Abnormality ) -Color (Adelina-wound Skin Appearance) No Abnormality -Temperature (Adelina-wound Skin No Abnormality Appearance) (Pt Warm) -Ulcer Cleansing Rinsed/ Irrigated with Saline -Foul Odor after Cleansing No -Anesthetic Used 4% Lidocaine Solution #1 2nd Toe -Current Size (cm) - Length 0.1 -Current Size (cm) - Width 0.1 -Current Size (cm) - Depth 0.1 -Total Square Cm 0.01 -Photo Taken No -Exudate Amt None Present (0 %) -Wound Margin Flat & Intact -Granulation Amt Large (67-100%) -Granulation Quality [place] -Necrosis Amt None Present (0 %) -Structure Exposed N/A -Texture (Adelina-wound Skin Appearance) Scarring -Moisture (Adelina-wound Skin Appearance No Abnormality ) -Color (Adelina-wound Skin Appearance) No Abnormality -Temperature (Adelina-wound Skin No Abnormality Appearance) (Pt Warm) -Ulcer Cleansing Rinsed/ Irrigated with Saline -Foul Odor after Cleansing No -Anesthetic Used 4% Lidocaine Solution WC - Nurse 2 - General Ulcer CM Notes Start: 02/23/18 09:06 Freq: Status: Active Protocol: Activity Type Activity Date Activity User E-Sign Co-Sign Detail Recorded Client Recorded Date Recorded By Document 03/09/18 11:30 [email or web address] [id number] 03/09/18 11:38 [email or web address] 03/09/18 11:30 Wound Center Nurse 2 [Procedure/Treatment] #2 3rd Toe -Time 11:30 -Correct Patient Yes -Correct Side, Site, Position Yes -Correct Procedure Yes -Procedure Performed Yes -Type of Procedure Debridement -Clinical Debridement Selective -Post Debridement Size (cm) - Length 0.1 -Post Debridement Size (cm) - Width 0.1 -Post Debridement Size (cm) - Depth 0 -Total Square Cm 0.01 -Wound/Ulcer Outcome Not Healed -Ulcer Cleansing Rinsed/ Irrigated with Saline -Foul Odor after Cleansing No -Bioengineered Tissue No -Topical Lidocaine (%) 4 -Lidocaine (ml) 5 -Bleeding Controlled with NA -Treatment Response Procedure Tolerated Well #1 2nd Toe -Time 11:32 -Correct Patient Yes -Correct Side, Site, Position Yes -Correct Procedure Yes -Procedure Performed Yes -Clinical Debridement Selective -Post Debridement Size (cm) - Length 0.1 -Post Debridement Size (cm) - Width 0.1 -Post Debridement Size (cm) - Depth 0.1 -Total Square Cm 0.01 -Wound/Ulcer Outcome Not Healed -Ulcer Cleansing Rinsed/ Irrigated with Saline -Foul Odor after Cleansing No -Bioengineered Tissue No -Topical Lidocaine (%) 4 -Lidocaine (ml) 5 -Bleeding Controlled with NA -Treatment Response Procedure Tolerated Well [See Physician Procedure note for Specifics] Pain Scale: 0-10 Numeric [Pain] -Is Patient Pain Free? Yes Musculoskeletal: No Muscle Wasting Neurological: Cranial nerves II-XII grossly intact, Neuro grossly intact Psych/Mental Status: Normal Affect, Appropriate, Alert and oriented to time, place, person, mood and affect Debridement Note Post-Debridement Measurements/Treatment WC - Nurse 2 - General Ulcer CM Notes Start: 02/23/18 09:06 Freq: Status: Active Protocol: Activity Type Activity Date Activity User E-Sign Co-Sign Detail Recorded Client Recorded Date Recorded By Document 02/23/18 10:43 [id number] 02/23/18 10:58 Document 03/02/18 08:56 [id number] 03/02/18 09:04 Document 03/09/18 11:30 [id number] 03/09/18 11:38 02/23/18 03/02/18 03/09/18 10:43 08:56 11:30 Wound Center Nurse 2 #2 3rd Toe -Time 10:43 08:56 11:30 -Correct Patient Yes Yes Yes -Correct Side, Site, Position Yes Yes Yes -Correct Procedure Yes Yes Yes -Procedure Performed Yes Yes -Type of Procedure Debridement Debridement -Clinical Debridement Subcutaneous Selective -Post Debridement Size (cm) - Length 0.2 0.1 -Post Debridement Size (cm) - Width 0.1 0.1 -Post Debridement Size (cm) - Depth 0.1 0 -Total Square Cm 0.02 0.01 -Wound/Ulcer Outcome Not Healed Not Healed Not Healed -Ulcer Cleansing Not Cleansed Rinsed/ Rinsed/ Irrigated with Irrigated with Saline Saline -Foul Odor after Cleansing No No No -Bioengineered Tissue No No No -Topical Lidocaine (%) 4 4 4 -Lidocaine (ml) 5 5 5 -Bleeding Controlled with NA NA NA -Treatment Response Procedure Procedure Tolerated Well Tolerated Well #1 2nd Toe -Time 10:43 08:56 11:32 -Correct Patient Yes Yes Yes -Correct Side, Site, Position Yes Yes Yes -Correct Procedure Yes Yes Yes -Procedure Performed No Yes Yes -Type of Procedure Debridement -Clinical Debridement Subcutaneous Selective -Post Debridement Size (cm) - Length 0.3 0.1 -Post Debridement Size (cm) - Width 0.3 0.1 -Post Debridement Size (cm) - Depth 0.1 0.1 -Total Square Cm 0.09 0.01 -Wound/Ulcer Outcome Not Healed Not Healed Not Healed -Ulcer Cleansing Rinsed/ Rinsed/ Rinsed/ Irrigated with Irrigated with Irrigated with Saline Saline Saline -Foul Odor after Cleansing No No No -Bioengineered Tissue No No No -Topical Lidocaine (%) 4 4 4 -Lidocaine (ml) 5 5 5 -Bleeding Controlled with NA NA NA -Treatment Response Procedure Not Procedure Procedure Tolerated Well Tolerated Well Tolerated Well Pain Scale: 0-10 Numeric Is Patient Pain Free? Yes Yes Laterality: Right - Medial second toe Type of Debridement: Selective debridement Anesthesia Used: 4% Lidocaine Solution Depth: Down to and including healthy tissue Percentage of wound debrided: 100 Instrument Used: 3mm curette Severity: Limited To Skin Breakdown Amount of bleeding with debridement: None Patient tolerated procedure well - Additional Wound Laterality: Right - Medial third toe Type of Debridement: Selective debridement Anesthesia Used: 4% Lidocaine Solution Depth: Down to and including healthy tissue Percentage of wound debrided: 100 Instrument Used: 3mm curette Severity: Limited To Skin Breakdown Amount of bleeding with debridement: None Patient tolerated procedure: Patient tolerated procedure well Assessment/Plan Active Problems Diabetes mellitus (Chronic) Ulcer of toe of right foot (Chronic) Peripheral neuropathy (Chronic) Steroid dependence (Chronic) Rheumatoid arthritis (Chronic) Chronic osteoarthritis (Chronic) Assessment: This is a 77-year-old diabetic female who presents with very superficial ulcerations on the second and third toes of the right foot. It appears as though the ulcerations started as blisters, which have now transitioned to superficial ulcerations. The blisters were likely due to pressure phenomenon, either due to poorly fitted shoes or rubbing due to deformity of the toes secondary to arthritis. The patient has multiple other medical problems, which have been documented above. She has had recent laboratory studies, with results as follows: White blood count 9.0 hemoglobin 13.9, hematocrit 43.7, platelets 285,000, sodium 146, potassium 4.1, chloride 110, BUN 11, creatinine 0.94, calcium 8.7, ALT 25, AST 23, total protein 6.9, albumin 3.2. Hemoglobin A1c was 6.2. A noninvasive lower extremity arterial study revealed triphasic waveforms at ankle level bilaterally, and supra-normal ankle-brachial index on the right. Plan: Offloading measures have been implemented. We are to continue the use of Opti-Foam, which will allow for offloading and separation of the adjacent digits. HCollagen hydrogel is to be continued for topical use, and will be applied on a daily basis. Optimization of nutritional intake, and optimization of glycemic management has also been recommended. The patient is to return in 1 week for reassessment. Influenza vaccine was not administered today. The patient is not a smoker. Patient weighs 154 pounds. She stands 5 feet 7 inches tall. Her BMI is 24.1, which is normal.
== END 2018-03-11 23:59 ==
LOC: WC 11:00
PROVIDERS: Family Provider Internal Medicine; PCP Internal Medicine; Visit Provider Surgery
DX: E11.621 Type 2 diabetes mellitus with foot ulcer (principal); E11.42 Type 2 diabetes mellitus with diabetic polyneuropathy; I10 Essential (primary) hypertension; M19.90 Unspecified osteoarthritis, unspecified site; M06.9 Rheumatoid arthritis, unspecified; E03.9 Hypothyroidism, unspecified; L97.512 Non-pressure chronic ulcer of other part of right foot with fat layer exposed
CPT/HCPCS: 11042; 83036; 93923; 97597; 99213; G0463

== ENCOUNTER 2018-03-18 09:49 | Inpatient (IN) | payer MEDICARE, SELFPAY ==
--- NOTE | 2018-03-18 11:55 | CT_ITS ---
STUDY: CT BRAIN WITHOUT CONTRAST REASON FOR EXAM: Female, 77 years old. Vertigo. RADIATION DOSAGE (If Supplied By Facility): CTDIvol = ( 44.99 ) mGy, DLP = ( 796.11 ) mGycm TECHNIQUE: Transaxial CT imaging of the brain was performed without administration of intravenous contrast material. Multiplanar reformations are submitted for interpretation. Individualized dose optimization techniques were used for this CT. COMPARISON: CT of the head dated May 12, 2017. FINDINGS: Normal soft tissue structures. Normal calvarium. There is mild cerebral atrophy with widening of the extra-axial spaces and moderate ventricular dilatation. There are areas of decreased attenuation within the white matter tracts of the supratentorial brain, consistent with microvascular disease changes. Normal basal ganglia and thalami. Normal brainstem. There is mild cerebellar atrophy. There is no intracranial hemorrhage. There is moderate atherosclerotic calcification of intracranial arteries. There is mucoperiosteal inflammatory disease of the paranasal sinuses consistent with mild chronic sinusitis. CT/Brain/Head without Contrast IMPRESSION: 1. Chronic involutional changes of the brain. 2. No CT evidence of acute intracranial hemorrhage. Electronically Signed: Laura Chaney MD at 8:25 EDT , Service support ,
--- NOTE | 2018-03-18 17:00 | DT_ITS ---
This patient was seen during an EMR downtime March 15, 2018 - March 22, 2018. This patient may have a combination of paper and electronic documentation or all paper documentation. All documentation is viewable within the e-chart portion of [facility] for each patient visit.
--- NOTE | 2018-03-18 18:46 | MRI_ITS ---
STUDY: MRI BRAIN WITHOUT CONTRAST REASON FOR EXAM: Female, 77 years old. VERTIGO,DIZZINESS. TECHNIQUE: Standardized multiplanar fat and water weighted pulse sequences were obtained. COMPARISON: None. FINDINGS: There is mild cerebral atrophy with widening of the extra-axial spaces and ventricular dilatation. There are multiple white matter hyperintensities, distributed throughout the deep white matter tracts of the cerebral hemispheres, consistent with mild chronic white matter ischemic changes. Normal bilateral basal ganglia. Normal thalami. There is no extra-axial fluid accumulation. Normal flow voids within the major intracranial circulation suggesting patency by spin echo criteria. Normal sella turcica, pituitary gland, infundibular stalk, optic chiasm and hypothalamus. Normal tectal plate and pineal gland. There are chronic white matter ischemic changes of the tashia. The midbrain and medulla are otherwise normal. Normal cerebellum. Normal basal cisterns. Normal bilateral temporal bones. Normal bilateral internal auditory canals. MRI/Brain without Contrast IMPRESSION: No acute intracranial abnormality. Mild chronic microvascular ischemic changes Electronically Signed: Rupa Mcgrath MD at 10:38 EDT Tel , Service support ,
--- NOTE | 2018-03-19 14:37 | MRI_ITS ---
STUDY: MRA OF THE HEAD WITHOUT CONTRAST REASON FOR EXAM: Female, 77 years old. Vertigo TECHNIQUE: 3-D wbvc-im-rorxea (TOF) imaging was performed with MIPs. The study was performed unenhanced. COMPARISON: None. FINDINGS: Normal bilateral petrous carotid arteries. Normal right cavernous carotid artery with a normal supraclinoid bifurcation. Normal left cavernous carotid artery with a normal supraclinoid bifurcation. Normal right A1 segments of the anterior cerebral artery. Normal left A1 segments of the anterior cerebral artery. Normal intact anterior communicating artery (ACOM). Normal bilateral A2 segments of the anterior cerebral arteries. Normal right M1 and M2 segments of the middle cerebral arteries, with a normal M1 bifurcation. Normal left M1 and M2 segments of the middle cerebral arteries, with a normal M1 bifurcation. Posterior communicating arteries are not visualized consistent with normal variant. Normal bilateral vertebral arteries. Normal basilar artery with a normal basilar bifurcation. The visualized bilateral superior cerebellar (SCA) arteries are normal. Normal bilateral P1, P2 and visualized P3 segments of the posterior cerebral arteries. There is no demonstrated aneurysm of the [place] of [place]. There is no major vessel occlusion or hemodynamically significant stenosis. There is no demonstrated abnormality of the visualized brain. MRI/MRA Head ONLY without Contrast IMPRESSION: Normal MRA of the head Electronically Signed: Johnathan Olivas MD at 19:19 EDT , Service support ,
--- NOTE | 2018-03-19 14:39 | MRI_ITS ---
STUDY: MRA NECK WITH AND WITHOUT CONTRAST REASON FOR EXAM: Female, 77 years old. Vertigo TECHNIQUE: 3-D ysmc-dy-lnkoat (TOF) imaging was performed in an 1.5 T MRI scanner. 7 ml of Gadavist was administered for the contrast enhanced images. COMPARISON: None. FINDINGS: RIGHT CAROTID ARTERIES: Normal right common carotid artery (CCA). Normal right common carotid bulb. Normal origin of the right internal carotid (ICA) artery without a hemodynamically significant stenosis. Normal visualized cervical portion of the right internal carotid artery. Normal origin of the right external carotid artery (ECA). LEFT CAROTID ARTERIES: Normal left common carotid artery (CCA). Normal left common carotid bulb. Normal origin of the left internal carotid (ICA) artery without a hemodynamically significant stenosis. Normal visualized cervical portion of the left internal carotid artery. Normal origin of the left external carotid artery (ECA). VERTEBRAL ARTERIES: Normal antegrade flow within the bilateral vertebral artery without a hemodynamically significant stenosis. MRI/MRA Neck WITH and W/O Contrast IMPRESSION: Normal bilateral cervical carotid and vertebral arteries. Electronically Signed: Johnathan Olivas MD at 19:20 EDT , Service support ,
[2018-03-20 12:05] LABS: Magnesium 2.2 mg/dL (1.6-2.6); Thyroid Stim Hormone (TSH) 0.36 uIU/mL (0.358-3.74)
[2018-03-20 13:49] LABS: Anion Gap 7 (5-15); BUN 13 mg/dL (7-18); BUN/Creat Ratio 16.9 RATIO (10-20); Calcium,Total 8.6 mg/dL (8.5-10.1); Chloride 106 mmol/L (98-107); Creatinine, Serum 0.77 mg/dL (0.55-1.02); EST Glomerular Filtration Rate 77 mL/min (>60); Est Glom Filt Rate - Afr Amer 93 mL/min (>60); Glucose 94 mg/dL (74-106); Potassium 3.6 mmol/L (3.5-5.1); Sodium Level 142 mmol/L (136-145)
[2018-03-21 13:02] LABS: Hematocrit 42.3 % (37-47); Hemoglobin 13.4 g/dl (12.0-15.0); Red Blood Count 4.81 M/mm3 (4.2-5.4); White Blood Count 6.9 K/mm3 (4.4-11.0)
[2018-03-21 13:03] LABS: Absolute Lymphocyte Count 2.57 X10^3/ul (0.83-4.51); Absolute Neutrophil Count 2.6 X10^3/uL (2.0-7.7); Basophil# 0.04 X10^3/uL; Basophil% 0.6 % (0-1); Eosinophil# 0.55 X10^3/uL; Lymphocyte # 2.57 X10^3/ul (4.0); Lymphocyte % 37.4 % (19-41); Mean Corp Hgb Conc 31.7 g/gl (32-36); Mean Corpuscular Hgb 27.9 pg (27.0-32.0); Mean Corpuscular Volume 87.9 fL (81-99); Mean Platelet Vol. 9.1 fl (6.2-12.0); Monocyte# 1.05 X10^3/uL; Monocyte% 15.3 % (0-10); Neutrophil # 2.66 X10^3/uL (2.7-7.7); Neutrophil % 38.6 % (47-70); POSITIVE COUNT NO; POSITIVE DIFFERENTIAL NO; POSITIVE MORPHOLOGY NO; Platelet Count 186 K/mm3 (150-450); RBC Distribution Width CV 14.5 % (11.6-14.6); RBC Distribution Width SD 46.6 fl (35.1-43.9)
[2018-03-23 09:42] LABS: Hemoglobin A1c 6.2 % (4.2-6.3)
[2018-03-26 11:12] LABS: Bedside Glucose 120 mg/dL (70-110)
[2018-03-26 11:25] LABS: Bedside Glucose 125 mg/dL (70-110)
[2018-03-26 11:53] LABS: Bedside Glucose 125 mg/dL (70-110)
[2018-03-26 11:55] LABS: Bedside Glucose 157 mg/dL (70-110)
[2018-03-26 12:04] LABS: Bedside Glucose 164 mg/dL (70-110)
[2018-03-26 12:05] LABS: Bedside Glucose 101 mg/dL (70-110)
== END 2018-03-20 11:17 | disposition home or self-care (01) | DRG 149 ==
LOC: ED 16:25 → MS3 03-19 07:33
PROVIDERS: Emergency Medicine; Admitting Provider Internal Medicine; Emergency Provider Emergency Medicine; Family Provider Internal Medicine; PCP Internal Medicine; Visit Provider Internal Medicine
DX: R42 Dizziness and giddiness (principal); I16.9 Hypertensive crisis, unspecified; E11.9 Type 2 diabetes mellitus without complications; E03.9 Hypothyroidism, unspecified; E78.5 Hyperlipidemia, unspecified; K21.9 Gastro-esophageal reflux disease without esophagitis; M06.9 Rheumatoid arthritis, unspecified; Z86.73 Personal history of transient ischemic attack (TIA), and cerebral infarction without residual deficits; Z79.899 Other long term (current) drug therapy; Z79.84 Long term (current) use of oral hypoglycemic drugs
CPT/HCPCS: 70450; 70544; 70549; 70551; 80048; 82962; 83036; 83735; 84443; 85025; 96374; 97162; 97166; 99285; A9585; J7030; J7040; A4216; G8978; G8979; G8987; G8988

== ENCOUNTER 2018-04-20 08:28 | Outpatient (RCR) | payer MEDICARE, SELFPAY ==
[2018-03-12 01:13] VITALS: BP 135/73; PULSE 77; RESP 18; TEMP 36.4
--- NOTE | 2018-03-22 14:19 | HP.PCM_ITS ---
(1) Tachycardia Status: Chronic Code(s): R00.0 - Tachycardia, unspecified (2) UTI (urinary tract infection) Status: Inactive Code(s): N39.0 - Urinary tract infection, site not specified (3) Chronic osteoarthritis Status: Chronic Code(s): M19.90 - Unspecified osteoarthritis, unspecified site (4) Diabetes mellitus Status: Chronic Qualifiers: Diabetes mellitus type: type 2 Diabetes mellitus complication detail: with polyneuropathy Code(s): E11.9 - Type 2 diabetes mellitus without complications (5) Essential hypertension Status: Chronic Code(s): I10 - Essential (primary) hypertension (6) Hypothyroidism Status: Chronic Code(s): E03.9 - Hypothyroidism, unspecified (7) Peripheral neuropathy Status: Chronic Code(s): G62.9 - Polyneuropathy, unspecified (8) Rheumatoid arthritis Status: Chronic Code(s): M06.9 - Rheumatoid arthritis, unspecified (9) Steroid dependence Status: Chronic (10) Ulcer of toe of right foot Status: Chronic Qualifiers: Non-pressure ulcer stage: limited to breakdown of skin Qualified Code(s): L97.511 - Non-pressure chronic ulcer of other part of right foot limited to breakdown of skin Code(s): L97.519 - Non-pressure chronic ulcer of other part of right foot with unspecified severity History of Present Illness Date of Service: 03/22/18 Chief Complaint: Ulcerations of the right second and third toes. History of Wound: This is a 77-year-old female with diabetes mellitus. She is a referral from her podiatric specialist due to superficial ulcerations on the right second and third toes. These had been present for approximately 1 month. It is thought that these occurred due to arthritic deformity of the toes, and the pressure phenomenon related to the adjacent digits. The patient had been using Neosporin topically. Each ulceration started as a blister, which has now ruptured and resulted in superficial ulcerations. The patient is currently wearing a CAM walker the left foot, due to a left foot fracture which appears to involve the arch. We have implemented a regimen of offloading measures, and the use of collagen hydrogel topically on a daily basis. Past Medical History Past Medical History: Chronic Problems Diabetes mellitus (Chronic) Ulcer of toe of right foot (Chronic) Peripheral neuropathy (Chronic) Steroid dependence (Chronic) Tachycardia (Chronic) Hypothyroidism (Chronic) Rheumatoid arthritis (Chronic) Essential hypertension (Chronic) Chronic osteoarthritis (Chronic) Surgical History: adenoidectomy, appendectomy, cholecystectomy, hysterectomy, - - Cataract surgery, right shoulder surgery, right carpal tunnel release, right hand surgery ?2, right knee surgery, right bunionectomy, left breast surgery for benign disease, surgery for a deviated Omma and lumbar disc surgery at the 4 ?5 level. Allergies/Adverse Reactions: Allergies amoxicillin [From Augmentin] Adverse Reaction (Verified 05/12/17 17:09) dizzy,vomitting DIZZY, VOMITTING clavulanic acid [From Augmentin] Adverse Reaction (Verified 05/12/17 17:09) dizzy, vomitting DIZZY, VOMITTING codeine Adverse Reaction (Verified 05/12/17 17:09) dizzy,nausea DIZZY, NAUSEA hydrocodone [From Vicodin] Adverse Reaction (Verified 05/12/17 17:09) dizzy,nausea DIZZY, NAUSEA oxycodone [From Percocet] Adverse Reaction (Verified 05/12/17 17:09) dizzy,nausea DIZZY, NAUSEA Sulfa (Sulfonamide Antibiotics) Adverse Reaction (Verified 05/12/17 17:09) dizzy,nausea DIZZY, NAUSEA tramadol Adverse Reaction (Verified 05/12/17 17:09) dizzy,nausea DIZZY, NAUSEA Home Medications: Ambulatory Orders Medication Instructions Recorded Levothyroxine [Synthroid] 75 mcg PO DAILY 03/11/17 Lisinopril [Zestril] 10 mg PO DAILY 03/11/17 Lorazepam [Ativan] 0.5 mg PO DAILY PRN PRN 03/11/17 Multivit-Min/FA/Lycopen/Lutein 1 each PO DAILY 03/11/17 [Centrum Silver Tablet] Omeprazole [Prilosec] 20 mg PO DAILY 03/11/17 Potassium (Otc) [Potassium OTC] 99 mg PO DAILY 03/11/17 Vitamin E 400 unit PO DAILY 03/11/17 Vits A,C,E/Lutein/Minerals 1 each PO DAILY 03/11/17 [Ocuvite with Lutein Tablet] predniSONE tablet 5 mg PO DAILY 03/11/17 traZODone [Desyrel] 50 mg PO QHS PRN 03/11/17 Acetaminophen [Tylenol Tablet] 650 mg PO Q6H PRN PRN tablet 05/15/17 Leflunomide 20 mg PO DAILY 02/23/18 Metformin HCl [Metformin HCl ER] 500 mg PO DAILY 02/23/18 - Family History Maternal No pertinent history, - - The patient's father at the age of 94 with a history of bone cancer. Patient's mother at age of 97 from old age. Paternal No pertinent history Smoking Status: Never smoker Tobacco Use: Non-smoker Review of Systems Constitutional: Denies: Chills, Fever, Weight Change Eyes: Denies: Pain, Vision Change HEENT: Denies: Difficulty Hearing, Difficulty Swallowing, Sinus Congestion Cardiovascular: Denies: Chest Pain, Palpitations Respiratory: Denies: Cough, Shortness of Breath Gastrointestinal: Denies: Diarrhea, Nausea, Vomiting Genitourinary: Denies: Dysuria, Hematuria Endocrine: Denies: Heat/ Cold Intolerance, Polydipsia, Polyuria Hematologic/ Lymphatic: Denies: Easy Bruising, Easy Bleeding - Physical Exam Vital Signs Temp Pulse Resp BP 97.5 F L 77 18 135/73 H 03/12/18 01:13 03/12/18 01:13 03/12/18 01:13 03/12/18 01:13 General: Alert, Oriented x3, Cooperative, No apparent distress, Well developed, Well nourished HEENT: Atraumatic, PERRLA, EOMI, Normocephalic Oral: Moist Mucosa Neck: No JVD Lungs: Normal air movement Abdomen: Non-Distended Extremities: No clubbing, No cyanosis, No edema, No Calf Tenderness, - - There is no swelling or edema in the lower extremities. The ulcerations on the second and third toes of the right foot appear to be healed. Certainly, that on the second toe is healed and epithelialized. The ulceration on the medial aspect of the right third toe also appears to be healed, though with some brownish discoloration, possibly representing underlying trapped hematoma. The epidermis appears to be intact, however. There is no sign of infection or cellulitis. Skin: No rashes, No breakdown Neurological: Cranial nerves II-XII grossly intact, Neuro grossly intact Psych/Mental Status: Normal Affect, Appropriate, Alert and oriented to time, place, person, mood and affect Debridement Note No debridement was completed today Assessment/Plan Assessment: This is a 77-year-old diabetic female who presents with very superficial ulcerations on the second and third toes of the right foot. It appears as though the ulcerations started as blisters, which have transitioned to superficial ulcerations. The blisters were likely due to pressure phenomenon , either due to poorly fitted shoes or rubbing due to deformity of the toes secondary to arthritis. The patient has multiple other medical problems, which have been documented above. She has had recent laboratory studies, with results as follows: White blood count 9.0 hemoglobin 13.9, hematocrit 43.7, platelets 285,000, sodium 146, potassium 4.1, chloride 110, BUN 11, creatinine 0.94, calcium 8.7, ALT 25, AST 23, total protein 6.9, albumin 3.2. Hemoglobin A1c was 6.2. A noninvasive lower extremity arterial study revealed triphasic waveforms at ankle level bilaterally, and supra-normal ankle-brachial index on the right. Plan: We are to continue current conservative treatment measures. The patient appears to have healed her right toe ulcerations. Offloading measures have been implemented. We are to continue the use of Opti-Foam, which will allow for offloading and separation of the adjacent digits. Collagen hydrogel is to be continued for topical use, and will be applied on a daily basis. Optimization of nutritional intake, and optimization of glycemic management has also been recommended. The patient is to return in 3 weeks for reassessment, to assure that her ulcerations have remained healed. Patient will shortly be moving out of state to [place]. Influenza vaccine was not administered today. The patient is not a smoker. Patient weighs 154 pounds. She stands 5 feet 7 inches tall. Her BMI is 24.1, which is normal.
[2018-04-20 11:03] VITALS: BP 160/76; PULSE 78; RESP 18; TEMP 35.6
--- NOTE | 2018-04-20 11:14 | HP.PCM_ITS ---
(1) Tachycardia Status: Chronic Current Visit: No Code(s): R00.0 - Tachycardia, unspecified (2) Chronic osteoarthritis Status: Chronic Current Visit: No Code(s): M19.90 - Unspecified osteoarthritis, unspecified site (3) Diabetes mellitus Status: Chronic Current Visit: No Qualifiers: Diabetes mellitus type: type 2 Diabetes mellitus complication detail: with polyneuropathy Code(s): E11.9 - Type 2 diabetes mellitus without complications (4) Essential hypertension Status: Chronic Current Visit: No Code(s): I10 - Essential (primary) hypertension (5) Hypothyroidism Status: Chronic Current Visit: No Code(s): E03.9 - Hypothyroidism, unspecified (6) Peripheral neuropathy Status: Chronic Current Visit: No Code(s): G62.9 - Polyneuropathy, unspecified (7) Rheumatoid arthritis Status: Chronic Current Visit: No Code(s): M06.9 - Rheumatoid arthritis, unspecified (8) Steroid dependence Status: Chronic Current Visit: No (9) Ulcer of toe of right foot Status: Chronic Current Visit: Yes Qualifiers: Non-pressure ulcer stage: limited to breakdown of skin Qualified Code(s): L97.511 - Non-pressure chronic ulcer of other part of right foot limited to breakdown of skin Code(s): L97.519 - Non-pressure chronic ulcer of other part of right foot with unspecified severity History of Present Illness Date of Service: 04/20/18 Chief Complaint: Ulcerations of the right second and third toes. History of Wound: This is a 78-year-old female with diabetes mellitus. She is a referral from her podiatric specialist due to superficial ulcerations on the right second and third toes. These had been present for approximately 1 month. It is thought that these occurred due to arthritic deformity of the toes, and the pressure phenomenon related to the adjacent digits. The patient had been using Neosporin topically. Each ulceration started as a blister, which has now ruptured and resulted in superficial ulcerations. The patient is currently wearing a CAM walker the left foot, due to a left foot fracture which appears to involve the arch. We have implemented a regimen of offloading measures, and the use of collagen hydrogel topically on a daily basis. Past Medical History Past Medical History: Chronic Problems Diabetes mellitus (Chronic) Ulcer of toe of right foot (Chronic) Peripheral neuropathy (Chronic) Steroid dependence (Chronic) Tachycardia (Chronic) Hypothyroidism (Chronic) Rheumatoid arthritis (Chronic) Essential hypertension (Chronic) Chronic osteoarthritis (Chronic) Surgical History: adenoidectomy, appendectomy, cholecystectomy, hysterectomy, - - Cataract surgery, right shoulder surgery, right carpal tunnel release, right hand surgery ?2, right knee surgery, right bunionectomy, left breast surgery for benign disease, surgery for a deviated Omma and lumbar disc surgery at the 4 ?5 level. Allergies/Adverse Reactions: Allergies amoxicillin [From Augmentin] Adverse Reaction (Verified 05/12/17 17:09) dizzy,vomitting DIZZY, VOMITTING clavulanic acid [From Augmentin] Adverse Reaction (Verified 05/12/17 17:09) dizzy, vomitting DIZZY, VOMITTING codeine Adverse Reaction (Verified 05/12/17 17:09) dizzy,nausea DIZZY, NAUSEA hydrocodone [From Vicodin] Adverse Reaction (Verified 05/12/17 17:09) dizzy,nausea DIZZY, NAUSEA oxycodone [From Percocet] Adverse Reaction (Verified 05/12/17 17:09) dizzy,nausea DIZZY, NAUSEA Sulfa (Sulfonamide Antibiotics) Adverse Reaction (Verified 05/12/17 17:09) dizzy,nausea DIZZY, NAUSEA tramadol Adverse Reaction (Verified 05/12/17 17:09) dizzy,nausea DIZZY, NAUSEA Home Medications: Ambulatory Orders Medication Instructions Recorded Levothyroxine [Synthroid] 75 mcg PO DAILY 03/11/17 Lisinopril [Zestril] 10 mg PO DAILY 03/11/17 Lorazepam [Ativan] 0.5 mg PO DAILY PRN PRN 03/11/17 Multivit-Min/FA/Lycopen/Lutein 1 each PO DAILY 03/11/17 [Centrum Silver Tablet] Omeprazole [Prilosec] 20 mg PO DAILY 03/11/17 Potassium (Otc) [Potassium OTC] 99 mg PO DAILY 03/11/17 Vitamin E 400 unit PO DAILY 03/11/17 Vits A,C,E/Lutein/Minerals 1 each PO DAILY 03/11/17 [Ocuvite with Lutein Tablet] predniSONE tablet 5 mg PO DAILY 03/11/17 traZODone [Desyrel] 50 mg PO QHS PRN 03/11/17 Acetaminophen [Tylenol Tablet] 650 mg PO Q6H PRN PRN tablet 05/15/17 Leflunomide 20 mg PO DAILY 02/23/18 Metformin HCl [Metformin HCl ER] 500 mg PO DAILY 02/23/18 - Family History Maternal No pertinent history, - - The patient's father at the age of 94 with a history of bone cancer. Patient's mother at age of 97 from old age. Paternal No pertinent history Smoking Status: Never smoker Tobacco Use: Non-smoker Review of Systems Constitutional: Denies: Chills, Fever, Weight Change Eyes: Denies: Pain, Vision Change HEENT: Denies: Difficulty Hearing, Difficulty Swallowing, Sinus Congestion Cardiovascular: Denies: Chest Pain, Palpitations Respiratory: Denies: Cough, Shortness of Breath Gastrointestinal: Denies: Diarrhea, Nausea, Vomiting Genitourinary: Denies: Dysuria, Hematuria Endocrine: Denies: Heat/ Cold Intolerance, Polydipsia, Polyuria Hematologic/ Lymphatic: Denies: Easy Bruising, Easy Bleeding - Physical Exam Vital Signs Temp Pulse Resp BP 97.5 F L 77 18 135/73 H 03/12/18 01:13 03/12/18 01:13 03/12/18 01:13 03/12/18 01:13 General: Alert, Oriented x3, Cooperative, No apparent distress, Well developed, Well nourished HEENT: Atraumatic, PERRLA, EOMI, Normocephalic Oral: Moist Mucosa Neck: No JVD Lungs: Normal air movement Abdomen: Non-Distended Extremities: No clubbing, No cyanosis, No edema, No Calf Tenderness, - - There is no significant swelling or edema in either of the lower extremities. The ulcerations on the right second and third toes are now completely healed and epithelialized. Skin: No rashes, No breakdown Musculoskeletal: No Muscle Wasting Neurological: Cranial nerves II-XII grossly intact, Neuro grossly intact Psych/Mental Status: Normal Affect, Appropriate, Alert and oriented to time, place, person, mood and affect Debridement Note No debridement was completed today Assessment/Plan Active Problems Ulcer of toe of right foot (Chronic) Assessment: This is a 78-year-old diabetic female who presented with very superficial ulcerations on the second and third toes of the right foot. It appears as though the ulcerations started as blisters, which have transitioned to superficial ulcerations. The blisters were likely due to pressure phenomenon , either due to poorly fitted shoes or rubbing due to deformity of the toes secondary to arthritis. The right toe ulcerations are now completely healed and epithelialized. The patient has multiple other medical problems, which have been documented above. She has had recent laboratory studies, with results as follows: White blood count 9.0 hemoglobin 13.9, hematocrit 43.7, platelets 285,000, sodium 146, potassium 4.1, chloride 110, BUN 11, creatinine 0.94, calcium 8.7, ALT 25, AST 23, total protein 6.9, albumin 3.2. Hemoglobin A1c was 6.2. A noninvasive lower extremity arterial study revealed triphasic waveforms at ankle level bilaterally, and supra-normal ankle-brachial index on the right. Plan: The ulcerations on the patient's right second and third toes are now completely healed and epithelialized. She is to be discharged from our facility. In addition, she is moving to [place] in 1 week. She has been advised to continue with offloading measures. She has been advised to establish herself with a podiatric specialist upon her arrival in [place], and that wearing of appropriately fitted footwear is highly advisable. Given that the patient is diabetic, regular visits with a software development leader are also recommended. Influenza vaccine was not administered today. The patient is not a smoker. Patient weighs 154 pounds. She stands 5 feet 7 inches tall. Her BMI is 24.1, which is normal.
== END 2018-05-11 23:59 ==
LOC: WC 08:28
PROVIDERS: Family Provider Internal Medicine; PCP Internal Medicine; Visit Provider Surgery
DX: E11.621 Type 2 diabetes mellitus with foot ulcer (principal); M06.9 Rheumatoid arthritis, unspecified; E11.42 Type 2 diabetes mellitus with diabetic polyneuropathy; M19.90 Unspecified osteoarthritis, unspecified site; L97.511 Non-pressure chronic ulcer of other part of right foot limited to breakdown of skin; Z79.52 Long term (current) use of systemic steroids; Z79.899 Other long term (current) drug therapy; Z79.84 Long term (current) use of oral hypoglycemic drugs; E03.9 Hypothyroidism, unspecified
CPT/HCPCS: 99212; 99213; G0463

== ENCOUNTER → 2018-04-22 12:31 | Outpatient (CLI) | payer MEDICARE, SELFPAY ==
[2018-04-22 13:29] LABS: Erythrocyte Sedimentation Rate 12 mm/hr (0-30)
[2018-04-22 13:33] LABS: Absolute Lymphocyte Count 2.61 X10^3/ul (0.83-4.51); Basophil# 0.05 X10^3/uL; Basophil% 0.6 % (0-1); Eosinophil# 1.24 X10^3/uL; Eosinophils% 15.8 % (0-5); Hematocrit 40.8 % (37-47); Hemoglobin 12.6 g/dl (12.0-15.0); Lymphocyte # 2.61 X10^3/ul (4.0); Lymphocyte % 33.2 % (19-41); Mean Corp Hgb Conc 30.9 g/gl (32-36); Mean Corpuscular Hgb 27.1 pg (27.0-32.0); Mean Corpuscular Volume 87.7 fL (81-99); Mean Platelet Vol. 9.2 fl (6.2-12.0); Monocyte# 0.92 X10^3/uL; Monocyte% 11.7 % (0-10); Neutrophil # 3.03 X10^3/uL (2.7-7.7); Neutrophil % 38.6 % (47-70); POSITIVE COUNT NO; POSITIVE DIFFERENTIAL NO; POSITIVE MORPHOLOGY NO; Platelet Count 176 K/mm3 (150-450); RBC Distribution Width CV 14.7 % (11.6-14.6); Red Blood Count 4.65 M/mm3 (4.2-5.4); White Blood Count 7.9 K/mm3 (4.4-11.0)
[2018-04-22 13:49] LABS: CRP < 2.90 mg/L (0.0-3.0)
== END ==
PROVIDERS: Family Provider Internal Medicine; PCP Internal Medicine; Visit Provider Specialist
DX: Z96.611 Presence of right artificial shoulder joint (principal)
CPT/HCPCS: 36415; 85025; 85652; 86140